=== PATIENT | female | born 1955 | race Caucasian/White ===

== ENCOUNTER 2019-01-31 13:48 | Inpatient (IN) | payer OTHER ==
[~2019-01-31] VITALS: Ht 157.5 cm; Wt 56.2 kg
[2019-01-31 13:50] VITALS: BP 162/75
[2019-01-31 14:17] LABS: BILIRUBIN NEGATIVE (NEGATIVE); BLOOD NEGATIVE (NEGATIVE); CLARITY CLEAR (CLEAR); COLOR YELLOW (YELLOW); GLUCOSE NEGATIVE (NEGATIVE); KETONE NEGATIVE (NEGATIVE); LEUKO ESTERASE 1+ (NEGATIVE); NITRITE NEGATIVE (NEGATIVE); UROBILINOGEN 0.2 E.U./dl (0.2-1.0)
[2019-01-31 14:26] LABS: URINE AMPHETAMINES < 1000 (1000ng/ml); URINE BARBITURATES < 200 (200ng/ml); URINE BENZODIAZEPINES < 200 (200ng/ml); URINE CANNABINOIDS (THC) < 50 (50ng/ml); URINE COCAINE < 300 (300ng/ml); URINE METHADONE < 300 (300ng/ml); URINE OPIATES > 300 (300ng/ml); URINE PHENCYCLIDINE < 25 (25ng/ml)
[2019-01-31 14:35] LABS: BASO # 0.1 10*3/uL (0.0-0.1); BASO % 0.7 % (0.0-1.0); EOS # 0.6 10*3/uL (0.0-0.4); EOS % 9.1 % (1.0-4.0); HEMATOCRIT 36.8 % (37.0-47.0); HEMOGLOBIN 11.4 g/dl (12.0-16.0); LYMPH # 1.3 10*3/uL (1.3-4.4); LYMPH % 18.8 % (27.0-41.0); MEAN CELL VOLUME 91.3 fl (81.0-99.0); MEAN CORPUSCULAR HGB 28.3 pg (27.0-31.0); MEAN PLATELET VOLUME 9.9 fl (9.6-12.3); MONO # 0.7 10*3/uL (0.1-1.0); MONO % 9.8 % (3.0-9.0); NEUT # 4.1 10*3/uL (2.3-7.9); NEUT % 61.3 % (47.0-73.0); PLATELET COUNT AUTOMATED 208 10*3/uL (130-400); RED BLOOD COUNT 4.03 10*6/uL (4.10-5.10); RED CELL DISTRI WIDTH 15.4 % (0-14.5); WHITE BLOOD COUNT 6.7 10*3/uL (4.8-10.8)
[2019-01-31 14:37] LABS: BACTERIA TRACE; EPITHELIAL CELLS 0-2
[2019-01-31 14:51] LABS: ALBUMIN 3.1 gm/dl (3.1-4.5); ALKALINE PHOSPHATASE 107 U/L (45-117); BUN 27 mg/dl (7-24); CHLORIDE 107 mmol/L (98-107); POTASSIUM 4.6 mmol/L (3.5-5.1); SGOT/AST 28 IU/L (3-35); SGPT/ALT 27 U/L (12-78); SODIUM 138 mmol/L (136-145); TOTAL PROTEIN 7.7 gm/dL (6.4-8.2)
[2019-01-31 14:57] LABS: ACETAMINOPHEN (TYLENOL) < 5.0 ug/ml (10-30); ETHYL ALCOHOL < 3.0 mg/dl (<3); TROPONIN I < 0.015 ng/ml (<0.045)
--- NOTE | 2019-01-31 15:33 | NUR ---
I CALLED TO SEE HOW MUCH LONGER UNTIL THE ROOM WILL BE CLEANED I WAS TOLD APPROX 15 MINUTES
--- NOTE | 2019-01-31 15:51 | NUR ---
[place] STAFF SPOKE WITH PATIENT ABOUT NEW VISION SERVICES. PATIENT MEETS CRITERIA. [place] STAFF WILL FOLLOW UP WITH PATIENT WITH REFERRAL OPTIONS FOR HER AFTERCARE PLAN. ZAINAB BOTELLO B.A. INTAKE COORDIANTOR
[2019-01-31 15:55] VITALS: BP 152/62
--- NOTE | 2019-01-31 15:55 | NUR ---
PATIENT ARRIVED TO FLOOR AT THIS TIME VIA WHEELCHAIR FROM ER ESCORTED BY RN. PATIENT IS UNMONITORED, ON ROOM AIR, AND IS A NEW VISION PATIENT. PATIENT ASSESSMENT AND ADMISSION COMPLETED WITHOUT INCIDENT. PATIENT HAD NO IV, O2 AND IS UNMONITORED. ORIENTED TO ROOM, CALL LIGHT AND FLOOR. ADVISED PATIENT THAT BEING A NEW VISION PROGRAM PATIENT SHE IS NOT TO LEAVE THE FLOOR. PATIENT HANDED OVER MULTIPLE OTC AND PRESCRIPTION MEDICATIONS THAT WERE DOCUMENTED AND COUNTED AND SENT TO PHARMACY. CALL LIGHT WITHIN REACH. WILL CONTINUE TO MONITOR.
[2019-01-31 16:00] VITALS: BP 152/62
[2019-01-31 16:59] LABS: INTERNATIONAL NORM RATIO 0.9 (2.0-3.5)
[2019-01-31] MEDS ORDERED: D3-20002000 UNIT PO (17:04)
[2019-01-31] MEDS ORDERED: ZINC SULFATE220 M2 PO (17:05)
[2019-01-31] MEDS ORDERED: ONDANSETRON4 M1 PO (17:07)
[2019-01-31] MEDS ORDERED: HYDROCODONE-AC1 EACH PO (17:08)
[2019-01-31] MEDS ORDERED: NEXIUM20 M1 PO (17:09)
[2019-01-31] MEDS ORDERED: FUROSEMIDE40 MG PO (17:10)
[2019-01-31] MEDS ORDERED: MULTIVITAMINS1 EAC5 PO (17:10)
[2019-01-31] MEDS ORDERED: ZOLOFT100 MG PO (17:11)
[2019-01-31] MEDS ORDERED: BUSPIRONE15 MG PO (17:12)
[2019-01-31] MEDS ORDERED: NATURE'S BLEND F1 MG PO (17:12)
[2019-01-31] MEDS ORDERED: VITAMIN C500 M4 PO (17:13)
[2019-01-31] MEDS ORDERED: COMBIVENT RESPIM4 GM INH (17:14)
[2019-01-31] MEDS ORDERED: BIOTIN2500 MCG PO (17:14)
[2019-01-31 20:00] VITALS: BP 149/61
[2019-02-01] VITALS: BP 138/64
--- NOTE | 2019-02-01 06:55 | NUR ---
HOLLI HUFFMAN [id number] Please refer to the physician's history and physical for past medical history, comorbid conditions, and allergies. Diagnosis: OPIOID WITHDRAWAL OPIOID ABUSE Jonel Score: 20,LOW OR NO RISK WOUND DESCRIPTIONS: Patient has several partial thickness areas noted to bilateral upper arm, bilateral lower extremities, upper back, lower back and chest. No drainage noted at time of assessment. Patient has scar tissue noted to surrounding areas at time of assessment. Patient states this has been going on for 2 years and was put on zoloft 100mg and still having diffcultly patient stated that she just wants it to start. Surface the patient is resting on: Isoflex SKIN PREVENTION RECOMMENDATION: 1. Pressure redistribution support surface as appropriate 2. Elevate heels 3. Remove boots/TEDS every shift and reapply 4. Head of bed 30 degrees as tolerated 5. Assess nutrition and hydration 6. Manage moisture 7. Avoid the use of containment devices while in bed 8. Use absorptive products on surfaces limit layers of linens on bed 9. Turn and reposition every 1-2 hours in bed and every 1 hour in chair as tolerated 10. Weight shifts every 15 minutes while up in chair 11. Offloading with pillows or device to keep heels elevated off bed 12. Monitor skin at least every shift 13. Inspect under medical devices twice a day WOUND TREATMENT RECOMMENDATIONS: Cleanse all affected areas with soap and water and apply aquaphor ointment bid. Consult krissy per patient request to see if she is able to get anything to work since zoloft is ineffective at time of assessment.
--- NOTE | 2019-02-01 07:37 | NUR ---
24 HOUR CHART CHECK COMPLETED
[2019-02-01 08:00] VITALS: BP 110/52
--- NOTE | 2019-02-01 08:27 | NUR ---
Dr. Aguilera notified of wound care recommendations.
--- NOTE | 2019-02-01 08:50 | NUR ---
PATIENT ASSESSMENT COMPLETED WITHOUT INCIDENT. PATIENT DENIES ANY CHEST PAIN OR SHORTNESS OF BREATH, DOES STATE SHE IS A LITTLE ANXIOUS AND WAS MEDICATED FOR THIS COMPLAINT. NO TREMORS, AMBULATORY IN ROOM AND FLOOR HALLWAYS. CALL LIGHT WITHIN REACH, WILL CONTINUE TO MONITOR.
[2019-02-01 12:00] VITALS: BP 132/56
--- NOTE | 2019-02-01 14:09 | NUR ---
SEBASTIAN CALLED AND RAISSA WAS MADE AWARE OF CONSULTATION FOR THIS PATIENT, STATED IT MAY BE TOMORROW BEFORE PATIENT IS ABLE TO BE SEEN.
--- NOTE | 2019-02-01 14:49 | NUR ---
Nutritional Support Services Note: Hx of wounds to back, and arms. Dx of opiod withdrawal, opiod abuse. Ht.5'2 Wt.124# IBW 110#. Appetite is good for meals, regular diet as ordered with a night snack provided. Staff to continue to encourage good intake of meals. Encouraged increased need for kcal and protein to promote healing. Will follow as needed. Arlene Parsons Rdn Ld
--- NOTE | 2019-02-01 15:20 | NUR ---
[place] STAFF SPOKE WITH PATIENT ABOUT REFERRAL OPTIONS. PATIENT IS UNDECIDED ON WHAT SHE WANTS TO DO. PATIENT STATED THAT SHE IS TRYING TO FIND ANOTHER PAIN CLINIC. ZAINAB BOTELLO B.A. 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
[2019-02-01 16:00] VITALS: BP 119/70
--- NOTE | 2019-02-01 19:38 | NUR ---
PATIENT SITTING UP AT THE BEDSIDE EATING DINNER. PATIENT STATES SHE FEELS "BLAH". PRN MEDICATION OFFERED TO PATIENT AND SHE STATED SHE WILL TAKE SOMETHING FOR ANXIETY A LITTLE LATER. CALL LIGHT WITHIN REACH. WILL MONITOR.
[2019-02-01 20:00] VITALS: BP 138/66
--- NOTE | 2019-02-01 21:09 | NUR ---
PATIENT MEDICATED WITH PRN SENNA, VISTARIL, AND ROBAXIN FOR C/O CONSTIPATION, ANXIETY, AND MUSCLE ACHES. WILL MONITOR FOR EFFECTIVENESS.
--- NOTE | 2019-02-01 21:53 | NUR ---
PER PATIENT PRN VISTARIL AND ROBAXIN EFFECTIVE. SENNA NOT EFFECTIVE AT THIS TIME.
--- NOTE | 2019-02-01 22:46 | NUR ---
PATIENT MEDICATED WITH PRN TUMS PER REQUEST.
--- NOTE | 2019-02-01 23:30 | NUR ---
PER PATIENT PRN TUMS EFFECTIVE.
[2019-02-02] VITALS: BP 121/74
--- NOTE | 2019-02-02 01:52 | NUR ---
24 HR chart check completed.
--- NOTE | 2019-02-02 04:56 | NUR ---
PER PATIENT, PRN SENNA EFFECTIVE.
[2019-02-02 08:00] VITALS: BP 130/58
--- NOTE | 2019-02-02 09:00 | NUR ---
PT MEDICATED WITH PRN ZOFRAN FOR C/O NAUSEA. WILL MONITOR.
--- NOTE | 2019-02-02 10:00 | NUR ---
[KELSEY VU EFFECTIVE PER PT.
[2019-02-02 12:00] VITALS: BP 114/59
--- NOTE | 2019-02-02 15:00 | NUR ---
PT DENIES ANY NEEDS AT THIS TIME. WILL CONTINUE TO MONITOR.
[2019-02-02 16:00] VITALS: BP 128/48
--- NOTE | 2019-02-02 17:30 | NUR ---
PT RESTING IN BED. VSS. WILL MONITOR.
[2019-02-02 20:00] VITALS: BP 123/56
--- NOTE | 2019-02-02 20:00 | NUR ---
PATIENT SITTING UP AT THE SIDE OF THE BED EATING DINNER. CALL LIGHT WITHIN REACH.
--- NOTE | 2019-02-02 20:30 | NUR ---
PATIENT MEDICATED WITH PRN VISTARIL AND TRAZADONE FOR ANXIETY AND SLEEP. PRN TUMS GIVEN PER REQUEST AFTER PATIENT FINISHED EATING DINNER. WILL MONITOR FOR EFFECTIVENESS.
--- NOTE | 2019-02-02 21:40 | NUR ---
PER PATIENT PRN TUMS AND VISTARIL EFFECTIVE. PRN TRAZADONE NOT EFFECTIVE AT THIS TIME BUT PATIENT TALKING ON THE PHONE WITH FAMILY. WILL CONTINUE TO MONITOR.
[2019-02-03] VITALS: BP 113/56
--- NOTE | 2019-02-03 00:49 | NUR ---
24 HR chart check completed.
[2019-02-03 06:08] LABS: BASO % 0.6 % (0.0-1.0); EOS # 0.6 10*3/uL (0.0-0.4); EOS % 9.4 % (1.0-4.0); HEMATOCRIT 33.2 % (37.0-47.0); HEMOGLOBIN 10.1 g/dl (12.0-16.0); LYMPH # 1.6 10*3/uL (1.3-4.4); LYMPH % 23.5 % (27.0-41.0); MEAN CELL VOLUME 92.5 fl (81.0-99.0); MEAN CORPUSCULAR HGB 28.1 pg (27.0-31.0); MEAN CORPUSCULAR HGB CONC 30.4 g/dl (33.0-37.0); MEAN PLATELET VOLUME 9.9 fl (9.6-12.3); MONO # 0.6 10*3/uL (0.1-1.0); MONO % 9.1 % (3.0-9.0); NEUT # 3.9 10*3/uL (2.3-7.9); NEUT % 57.1 % (47.0-73.0); PLATELET COUNT AUTOMATED 192 10*3/uL (130-400); RED BLOOD COUNT 3.59 10*6/uL (4.10-5.10); RED CELL DISTRI WIDTH 15.2 % (0-14.5); WHITE BLOOD COUNT 6.7 10*3/uL (4.8-10.8)
[2019-02-03 06:31] LABS: CREATININE 0.87 mg/dL (0.55-1.02)
[2019-02-03 08:00] VITALS: BP 106/48
[2019-02-03] MEDS ORDERED: ATARAX,VISTARIL50 MG PO (08:52)
[2019-02-03] MEDS ORDERED: ZOFRAN 4 MG ED2 TAB PO (08:52)
--- NOTE | 2019-02-03 13:07 | NUR ---
PT DISCHARGED HOME. DISCHARGE INSTRUCTIONE REVIEWED. HOME MEDS RETURNED TO PATIENT FROM PHARMACY.
== END 2019-02-03 13:07 | disposition home or self-care (01) | DRG 773 ==
LOC: ED 13:48 → 4E 14:41 → EDHOLD 14:41 → 4E 14:59
PROVIDERS: Internal Medicine; Nurse Practitioner Family; ADMIT Internal Medicine
DX: F11.23 Opioid dependence with withdrawal (principal); D64.9 Anemia, unspecified; L28.0 Lichen simplex chronicus; E55.9 Vitamin D deficiency, unspecified; E54 Ascorbic acid deficiency; E53.8 Deficiency of other specified B group vitamins; F32.9 Major depressive disorder, single episode, unspecified; F41.9 Anxiety disorder, unspecified; K21.9 Gastro-esophageal reflux disease without esophagitis; J44.9 Chronic obstructive pulmonary disease, unspecified; F42.4 Excoriation (skin-picking) disorder; M17.0 Bilateral primary osteoarthritis of knee; Z88.1 Allergy status to other antibiotic agents; Z98.891 History of uterine scar from previous surgery; Z98.84 Bariatric surgery status; Z90.49 Acquired absence of other specified parts of digestive tract; Z87.891 Personal history of nicotine dependence; Z82.5 Family history of asthma and other chronic lower respiratory diseases; Z80.0 Family history of malignant neoplasm of digestive organs; Z79.899 Other long term (current) drug therapy